=== PATIENT | female | born 1960 | race Two or more races ===

== ENCOUNTER → 2023-02-07 | Emergency (ER) | payer OTHER ==
[~2023-02-07] VITALS: Ht 162.6 cm; Wt 63.5 kg
[~2023-02-07] MED LIST: CLONAZEPAM0.5 M1
== END | disposition left against medical advice (07) ==
LOC: ER 17:01
DX: Z53.21 Procedure and treatment not carried out due to patient leaving prior to being seen by health care provider (principal)